=== PATIENT | male | born 1990 | race Hispanic/Latino ===

== ENCOUNTER 2017-05-08 13:36 | Emergency (ER) | payer MEDICAID, OTHER | END 2017-05-08 14:51 | disposition home or self-care (01) | LOC: EDH 13:36 | DX: M54.5 Low back pain (principal); J45.909 Unspecified asthma, uncomplicated | CPT/HCPCS: 99281 ==

== ENCOUNTER 2022-04-19 18:46 | Emergency (ER) | payer OTHER ==
[~2022-04-19] VITALS: Ht 175.3 cm; Wt 86.2 kg
[2022-04-19 18:48] VITALS: BP 139/76
== END 2022-04-19 19:35 | disposition left against medical advice (07) ==
LOC: EDH 18:46
DX: R10.30 Lower abdominal pain, unspecified (principal); Z53.21 Procedure and treatment not carried out due to patient leaving prior to being seen by health care provider

== ENCOUNTER 2023-01-20 18:43 | Emergency (ER) | payer OTHER ==
[~2023-01-20] VITALS: Ht 175.3 cm; Wt 86.2 kg
[2023-01-20] MEDS ORDERED: ACETAMINOPHEN 500 MG TABLET ONE (22:54)
[2023-01-20] MEDS ORDERED: ACETAMINOPHEN 500 MG TABLET PO SCH (23:00)
[2023-01-20 23:41] VITALS: BP 120/69; PULSE 74; RESP 16; O2SAT 98
[2023-01-20] MEDS ORDERED: NAPR-1180 PO (23:44)
== END 2023-01-20 23:49 | disposition home or self-care (01) ==
LOC: EDH 18:43
DX: R07.81 Pleurodynia (principal); J45.909 Unspecified asthma, uncomplicated
CPT/HCPCS: 71100